=== PATIENT | female | born 1955 | race Caucasian/White ===

== ENCOUNTER → 2019-04-10 08:38 | Outpatient (BNVA) | payer MEDICARE, SELFPAY | PROVIDERS: PCP Family Medicine; Referring Provider Internal Medicine; Visit Provider Student in an Organized Health Care Education/Training Program | DX: S46.011A Strain of muscle(s) and tendon(s) of the rotator cuff of right shoulder, initial encounter (principal); W19.XXXA Unspecified fall, initial encounter; M75.01 Adhesive capsulitis of right shoulder; M75.51 Bursitis of right shoulder; M75.21 Bicipital tendinitis, right shoulder; G25.89 Other specified extrapyramidal and movement disorders | CPT/HCPCS: 99204; 99215 ==

== ENCOUNTER → 2019-05-29 12:46 | Outpatient (BNVA) | payer MEDICARE, SELFPAY | PROVIDERS: PCP Family Medicine; Referring Provider Family Medicine; Visit Provider Student in an Organized Health Care Education/Training Program | DX: M75.01 Adhesive capsulitis of right shoulder (principal); S46.011D Strain of muscle(s) and tendon(s) of the rotator cuff of right shoulder, subsequent encounter; X58.XXXD Exposure to other specified factors, subsequent encounter; M75.21 Bicipital tendinitis, right shoulder; G25.89 Other specified extrapyramidal and movement disorders | CPT/HCPCS: 99213 ==

== ENCOUNTER → 2019-09-18 13:17 | Outpatient (BNVA) | payer MEDICARE, SELFPAY | PROVIDERS: PCP Family Medicine; Referring Provider Family Medicine; Visit Provider Student in an Organized Health Care Education/Training Program | DX: M75.01 Adhesive capsulitis of right shoulder (principal); M75.51 Bursitis of right shoulder; S46.011D Strain of muscle(s) and tendon(s) of the rotator cuff of right shoulder, subsequent encounter; X58.XXXD Exposure to other specified factors, subsequent encounter; M75.21 Bicipital tendinitis, right shoulder; G25.89 Other specified extrapyramidal and movement disorders | CPT/HCPCS: 99213 ==

== ENCOUNTER 2020-12-17 13:04 | Outpatient (REF) | payer MEDICARE, SELFPAY ==
--- NOTE | 2020-12-17 10:15 | PAPFT_PTH ---
PATIENT: Melissa Chavarria LOC: [facility] U#:[id number] AGE/SX: 65/F ROOM: RE12/17/[address]: Laura Bryan : 1955 BED: DIS: 12/17/2020 SPEC #: [id number] RECD: 12/17/20 13:08 STATUS: SAEED RECandi #: [id number] MIMI: 12/17/20 10:[address]: Laura Bryan DEPT: [facility] Cytology RECD BY: Carly Granado Tissues: 1 - CX/ENDOCX FOR PAP SMEARS Procedures: PAP THIN PREP/UVM Screening Comments: [id number] (UNSATISFACTORY FOR EVALUATION)
== END 2020-12-17 13:05 | disposition home or self-care (01) ==
LOC: NCHCN 13:04
PROVIDERS: PCP Family Medicine; Visit Provider Family Medicine
DX: Z12.4 Encounter for screening for malignant neoplasm of cervix (principal); R87.615 Unsatisfactory cytologic smear of cervix
CPT/HCPCS: 88142

== ENCOUNTER 2021-02-19 12:17 | Outpatient (REF) | payer MEDICARE, SELFPAY ==
--- NOTE | 2021-02-19 11:30 | PAPFT_PTH ---
PATIENT: Melissa Chavarria LOC: [facility]#:[id number] AGE/SX: 65/F ROOM: RE02/19/[address]: Laura Bryan : 1955 BED: DIS: 02/19/2021 SPEC #: [id number] RECD: 02/20/21 12:39 STATUS: SAEED REQ #: [id number] MIMI: 02/19/21 11:[address]: Laura Bryan DEPT: [facility] Cytology RECD BY: Marla Woodall Tissues: 1 - CX/ENDOCX FOR PAP SMEARS Procedures: PAP THIN PREP/UVM Screening HPV DNA PROBE Comments: [id number]
== END 2021-02-19 12:18 | disposition home or self-care (01) ==
LOC: NCHCN 12:17
PROVIDERS: PCP Family Medicine; Visit Provider Family Medicine
DX: Z12.4 Encounter for screening for malignant neoplasm of cervix (principal); Z01.419 Encounter for gynecological examination (general) (routine) without abnormal findings; Z11.51 Encounter for screening for human papillomavirus (HPV)
CPT/HCPCS: 88142; 87624

== ENCOUNTER 2021-12-11 17:17 | Outpatient (REF) | payer MEDICARE, SELFPAY ==
[2021-12-11 15:24] LABS: HCT 41.2 % (36.0-46.0); MCH 31.3 pg (27.0-33.0); MCV 92 fL (80-95); MPV 11.3 fL (8.0-11.0); Platelet Count 178 10^3/uL (130-400); RBC 4.47 10^6/uL (3.93-5.22); RDW 12.3 % (11.7-14.6); RDW-SD 41.7 fL; WBC 5.45 10^3/uL (4.4-10.8)
[2021-12-11 15:48] LABS: ALT 29 U/L (14-59); AST 19 U/L (15-37); Albumin 3.6 g/dL (3.4-5.0); Alkaline Phosphatase 80 U/L (46-116); Anion Gap 7.1 mmol/L (3-11); BUN 20 mg/dL (7-18); Bilirubin, Total 0.3 mg/dL (0.2-1.0); CO2 26.9 mmol/L (21.0-32.0); CREATININE 0.8 mg/dL (0.55-1.02); Calcium 9.1 mg/dL (8.5-10.1); Chloride 107 mmol/L (98-107); Glucose 102 mg/dL (74-106); Potassium 3.9 mmol/L (3.5-5.1); Sodium 141 mmol/L (136-145); Total Protein 7.5 g/dL (6.4-8.2)
[2021-12-11 16:15] LABS: Calculated LDL 100 mg/dL (<100); Cholesterol 183 mg/dL (<200); HDL Cholesterol 50 mg/dL (40-60); Triglyceride 167 mg/dL (<150)
== END 2021-12-11 17:18 | disposition home or self-care (01) ==
LOC: NCHCN 17:17
PROVIDERS: PCP Family Medicine; Visit Provider Family Medicine
DX: E78.00 Pure hypercholesterolemia, unspecified (principal)
CPT/HCPCS: 80053; 80061; 85027

== ENCOUNTER → 2021-12-21 11:13 | Outpatient (BNVA) | payer MEDICARE, MEDICAID, SELFPAY | PROVIDERS: PCP Family Medicine; Referring Provider Family Medicine; Visit Provider Surgery | DX: R13.10 Dysphagia, unspecified (principal) | CPT/HCPCS: 99213 ==

== ENCOUNTER 2022-01-28 17:10 | Outpatient (REF) | payer MEDICARE, SELFPAY | END 2022-01-28 17:11 | disposition home or self-care (01) | LOC: NCHCN 17:10 | PROVIDERS: PCP Family Medicine; Visit Provider Family Medicine | DX: R32 Unspecified urinary incontinence (principal) | CPT/HCPCS: 87086 ==

== ENCOUNTER 2022-02-18 12:04 | Day surgery (SDC) | payer MEDICARE, MEDICAID, SELFPAY ==
--- NOTE | 2022-02-18 10:26 | W.PM.HP.N ---
Date of service: 02/18/22 Time of Service: 12:42 Assessment and Plan Assessment and plan (1) Dysphagia: Status: Acute Assessment and plan: EGD today History of Present Illness History of Present Illness Chief Complaint: dysphagia Narrative: Melissa is a 66-year-old woman with several weeks of dysphagia, that she describes as a sticking sensation around the lower portion of her neck, and upper portion of the esophagus. She is here for diagnostic EGD PFSH All Active Problems Jones's esophagus (Acute) Dysphagia (Acute) Tubulovillous adenoma of colon (Acute) GERD (gastroesophageal reflux disease) (Chronic) Petit mal status (Acute) Medical History Abnormal mammogram of left breast Adhesive capsulitis of right shoulder (~08/2018) Bursitis of right shoulder (~08/2018) Degenerative joint disease of spine Face lesion Family history of thyroid disease Grief reaction Hypercholesterolemia Neck pain petit mal seizures Pt. states she blanking out for 1 minute, its like a phase out, nobody is really aware of it but me, i know its happening, and its more stress induced Last time it happened 02/17/22. [place] [facility] [place] appointment on 04/2022 f or EEG. Rotator cuff tear, right (~08/2018) Scapular dyskinesis (~08/2018) Tendonitis of long head of biceps brachii of right shoulder (~08/2018) Surgical History Cholecystectomy Endometrial Ablation Endoscopy Tonsillectomy Tubal Ligation, Laparoscopic Family History Mother Diabetes Personal history of malignant neoplasm breast Ruptured cerebral aneurysm Father Diabetes Heart disease uncle Personal history of malignant neoplasm colon Other Polyp of colon Social History Smoking/Tobacco Use Status: Never Smoking risk assessment performed?: Yes Alcohol Intake: never Drug use: Never Substance use type: does not use Household members: spouse Do you feel safe at home: Yes Do you feel safe in your relationship?: Yes Meds Allergies and Home Medications Allergies Allergy/AdvReac Type Severity Reaction Status Date / Time No Known Allergies Allergy Verified 02/17/22 11:01 Home Medications Medication Instructions Recorded Confirmed Type divalproex 250 mg tablet,extended 250 mg PO BID 10/02/12 02/18/22 History release 24 hr (Depakote ER) ibuprofen 200 mg capsule 400 mg PO TID PRN 10/02/12 02/17/22 History multivitamin 1 ea PO DAILY 10/02/12 02/18/22 History topiramate 100 mg tablet (Topamax) 150 mg PO BID 10/02/12 02/18/22 History vitamin B complex 1 ea PO DAILY 10/02/12 02/18/22 History atorvastatin 20 mg tablet 20 mg PO QHS 04/09/19 02/18/22 History omeprazole 20 mg capsule,delayed 20 mg PO DAILY 04/09/19 02/18/22 History release fluoxetine 20 mg capsule 20 mg PO DAILY 12/17/21 12/21/21 History naproxen 500 mg tablet,delayed 500 mg PO BID 12/17/21 02/18/22 History release (EC-Naproxen) Exam Const General: cooperative, healthy appearing and comfortable Orientation: awake and oriented x3 Eyes General: appearance normal, both eyes and all related structures Conjunctivae: conjunctivae normal Sclera: sclerae normal Resp Effort & Inspection: normal respiratory effort and able to speak in complete sentences Auscultation: clear to auscultation bilaterally Cardio Jugular venous pressure: no JVD Rate: regular rate Rhythm: regular rhythm Heart Sounds: S1 normal and S2 normal GI Inspection: non-distended Palpation: soft, no guarding, no hernias and nontender Auscultation: normal bowel sounds Skin General skin exam: normal turgor Neuro General: patient alert, patient awake and patient oriented x3 Cognition: normal cognition Extrem Right lower extremity: no edema Left lower extremity: no edema
--- NOTE | 2022-02-18 10:48 | W.PM.DSUDISC ---
Discharge Plan Disposition Patient Disposition: HOME Condition: Good Discharge Details Reason For Visit: EGD Attending Provider: Kev Morocho Primary Care Provider: Laura Bryan Home Meds and New Rx's Prescriptions: Continued omeprazole 20 mg capsule,delayed release(DR/EC) 20 mg PO DAILY atorvastatin 20 mg tablet 20 mg PO QHS multivitamin 1 EACH tablet 1 ea PO DAILY ibuprofen 200 MG capsule 400 mg PO TID PRN topiramate [Topamax] 100 MG tablet 150 mg PO BID vitamin B complex 1 EACH capsule 1 ea PO DAILY divalproex [Depakote ER] 250 MG tablet extended release 24 hr 250 mg PO BID fluoxetine 20 mg capsule 20 mg PO DAILY naproxen [EC-Naproxen] 500 mg tablet,delayed release (DR/EC) 500 mg PO BID Discharge Instructions Instructions: Upper Endoscopy (DC) Additional Instructions: 1. If tolerated, consume a soft, low fiber diet for 1-2 days. [address] Do not drive, drink alcohol, operate machinery, make critical decisions, or do activities that require coordination or balance for 24 hours. 3. You may experience a sore throat for 24 to 48 hours. You may use throat lozenges or gargle with warm salt water to relieve the discomfort. 4. Because air was put into your stomach during the procedure, you may experience some belching. 5. Go directly to the emergency room if you notice any of the following: Develop chills (warm to touch), or if you have a thermometer and your temperature is above 101 Difficulty breathing or difficultly swallowing Persistent vomiting Severe abdominal pain, other than gas cramps Severe chest pain Black, tarry stools Any bleeding ? exceeding one tablespoon 6. Call your physician if the site where your intravenous was started becomes red, swollen, painful, and warm to touch. 7. Your physician has reviewed your pre-procedure medications. Please continue to take those medications as previously ordered. You will be given specific information/education regarding any changes to your medications before leaving. Activity:: Activity as Tolerated Diet:: As Tolerated Discharge Orders Discharge Orders: Discharge Order (Routine); Ordered 02/18/22 Ordered By: Kev Morocho DS: Diagnosis Discharge Diagnosis (1) Dysphagia: Status: Acute Asessment and Plan: My offic will contact you with biospy results
--- NOTE | 2022-02-18 10:49 | ENDO_ITS ---
Date of service: 02/18/22 Time of Service: 13:54 Endoscopy Report DATE OF PROCEDURE: 02/18/22 PRE-OP DIAGNOSIS: dysphagia POST-OP DIAGNOSIS: same PROCEDURE: EGD SURGEON: Kev Morocho ANESTHESIA TYPE: General:No Airway ESTIMATED BLOOD LOSS: 10 PATHOLOGY: other (biopsies gastric antrum and body) COMPLICATIONS: None DISPOSITION: same day INDICATIONS: dysphagia PROCEDURE START TIME: 13:33 PROCEDURE END TIME: 13:40 FINDINGS: Normal-appearing esophagus, stomach, duodenum PROCEDURE DESCRIPTION: After the initiation of monitored anesthetic care, and with the assistance of a bite block, I advanced a standard gastroscope through the mouth past the hypopharynx and into the esophagus.? Under the direct vision of the scope, I advanced down the esophagus into the stomach.? Once I entered the stomach, I performed a brief inspection, followed by retroflexion towards the gastric ca rdia.? This appeared normal.? After that, I gently advanced the scope around the incisura angularis and examined the pylorus.? This also appeared normal.? Next, I advanced the scope through the pylorus into the duodenum.? The mucosa was pink and healthy appearing.? There were no abnormalities.? I was able to visualize bile draining into the duodenum through the ampulla Vater. ?Next, I began retrac ting the endoscope.? I performed random biopsies of the gastric antrum and body. I then gently desufflated some of the stomach, and withdrew the endoscope into the distal esophagus. The Z-line was normal-appearing at the GE junction at 35 cm. ?Finally, I withdrew the scope along the length of the esophagus taking great care to examine the entirety of the mucosa.? I did not appreciate any abnormalities.
[2022-02-18 12:25] VITALS: BP 124/69; PULSE 72; RESP 18; TEMP 36.7; O2SAT 99
--- NOTE | 2022-02-18 12:33 | ANES.PREOP_ITS ---
General Info Date of Service Date Performed: 02/18/22 Height: 5 ft 4 in Weight: 78.3 kg Body Mass Index (BMI): 29.6 Surgical Procedure: Operation Date: 02/18/22 14:05 Proposed Procedure Side Surgeon p Gastroscopy Kev Morocho MD Meds Allergies and Home Medications Allergies Allergy/AdvReac Type Severity Reaction Status Date / Time No Known Allergies Allergy Verified 02/17/22 11:01 Home Medication Medication Instructions Recorded divalproex 250 mg tablet,extended 250 mg PO BID 10/02/12 release 24 hr (Depakote ER) ibuprofen 200 mg capsule 400 mg PO TID PRN 10/02/12 multivitamin 1 ea PO DAILY 10/02/12 topiramate 100 mg tablet (Topamax) 150 mg PO BID 10/02/12 vitamin B complex 1 ea PO DAILY 10/02/12 atorvastatin 20 mg tablet 20 mg PO QHS 04/09/19 omeprazole 20 mg capsule,delayed 20 mg PO DAILY 04/09/19 release fluoxetine 20 mg capsule 20 mg PO DAILY 12/17/21 naproxen 500 mg tablet,delayed 500 mg PO BID 12/17/21 release (EC-Naproxen) Current Visit Medications: Current Medications Generic Name Dose Route Start Last Admin Trade Name Freq PRN Reason Stop Dose Admin Hyoscyamine Sulfate 0.125 mg 02/18/22 10:49 Hyoscyamine 0.125 Mg Sl/Oral/Chew SL DIRECTED PRN Ringer's Solution 1,000 mls @ 80 mls/hr 02/18/22 06:00 IV 03/19/22 23:59 INFUSION [facility] IV Miscellaneous Supplies 1 each 02/18/22 06:00 Iv Access IV 03/19/22 23:59 DIRECTED [facility] Ondansetron HCl 4 mg 02/18/22 10:49 Ondansetron 4 Mg/2 Ml Vial IVP Q4H PRN PRN Nausea / Vomiting Sodium Chloride 0 ml 02/18/22 06:00 Normal Saline Flush 10 Ml Syr IV 03/19/22 23:59 PRN PRN Sodium Chloride 0 ml 02/18/22 06:00 Normal Saline 10 Ml Vial IJ 03/19/22 23:59 DIRECTED PRN Sterile Water 0 ml 02/18/22 06:00 Water,Injection,Sterile 10 Ml Vial IJ 03/19/22 23:59 DIRECTED PRN PFSH Active Problems Active Problems: Problem Status Onset Code Jones's esophagus Dysphagia R13.10 Tubulovillous adenoma of colon D12.6 GERD (gastroesophageal reflux disease) K21.9 Petit mal status G40.A01 Medical History Medical History Abnormal mammogram of left breast Adhesive capsulitis of right shoulder (~08/2018) Bursitis of right shoulder (~08/2018) Degenerative joint disease of spine Face lesion Family history of thyroid disease Grief reaction Hypercholesterolemia Neck pain petit mal seizures Pt. states she blanking out for 1 minute, its like a phase out, nobody is really aware of it but me, i know its happening, and its more stress induced Last time it happened 02/17/22. [place] [facility] [place] 04/2022 f or EEG. Rotator cuff tear, right (~08/2018) Scapular dyskinesis (~08/2018) Tendonitis of long head of biceps brachii of right shoulder (~08/2018) Surgical History Surgical History Cholecystectomy Endometrial Ablation Endoscopy Tonsillectomy Tubal Ligation, Laparoscopic Tobacco Smoking/Tobacco Use Status: Never Alcohol Alcohol Intake: never Substance Use Substance use: Never Substance use type: does not use Vital Signs and Lab Results Vital Signs Most Recent Vital Signs in EMR: Most Recent Vital Signs Temp Pulse Resp BP Pulse Ox 36.7 C 72 18 124/69 99 02/18/22 12:25 02/18/22 12:25 02/18/22 12:25 02/18/22 12:25 02/18/22 12:25 Lab Results Blood Type / Crossmatch: No Data to Display Complete Blood Count: No Data to Display Complete Metabolic Panel: No Data to Display Liver Function Panel: No Data to Display Coagulation Panel: No Data to Display Cardiac Panel: No Data to Display Arterial Blood Gas: No Data to Display Venous Blood Gas: No Data to Display Pancreas Panel: No Data to Display Thyroid Panel: No Data to Display Infectious Disease: No Data to Display Blood Cultures: No Data to Display Toxicology Panel: No Data to Display Anesthesia Assessment and Plan Anesthesia History Personal History: No History of Anesthesia Complications Family History: No Family History of Anesthesia Complications Exercise Tolerance Exercise Tolerance: Metabolic Equivalents>4 Pertinent Negatives Pertinent Negatives: No Major Cardiovascular Symptoms or Complaints, No Major Pulmonary Symptoms or Complaints, No History of CVA/TIA and Other (Dysphagia) Cardiac & Pulmonary Exam Cardiac Exam: Normal S1/S2 Heart Sounds Pulmonary Exam: Clear Bilateral Breath Sounds Implantable Cardiac Device Does patient have a Pacemaker or an ICD?: No Airway Exam Known Difficult Airway: No Mallampati Class: 1 Mouth Opening: Normal (> 3cm) Thyromental Distance: Greater than 3 cm Neck Range of Motion: Full ROM Neck Circumference: Normal Teeth Condition: Normal Dentition ASA Classification ASA Score: ASA 2 Emergency Case?: No NPO Status NPO Status: NPO Clears >2 hours, Solids >8 hours Anesthesia Plan Resuscitation Status: Full Code Anesthesia Technique: General Anesthesia Airway Planned: Natural Airway Monitors Used: Standard Monitors
[2022-02-18] MEDS: Lactated Ringers 1,000 ML 80 ML IV (12:37)
[2022-02-18 12:43] VITALS: BMI 29.6
--- NOTE | 2022-02-18 13:38 | STOM_PTH ---
PATIENT: Melissa Chavarria LOC: [facility] U#:[id number] AGE/SX: 66/F ROOM: RE02/18/[address]: Kev Morocho MD : 1955 BED: DIS: 02/18/2022 SPEC #: [id number] RECD: 02/18/22 17:31 STATUS: SAEED RE #: [id number] MIMI: 02/18/22 13:[address]: Kev Morocho DEPT: Surgical Specimen RECD BY: Carly Granado ENTERED: 02/18/22 17:32 SP TYPE: STOMACH OTHR DR: Laura Bryan Tissues: 1 - STOMACH BIOPSY 2 - STOMACH BIOPSY Procedures: GROSS AND MICRO LEVEL 4 Comments: [id number]
[2022-02-18 13:50] VITALS: BP 119/64; PULSE 68; RESP 14; TEMP 36.4; O2SAT 93
--- NOTE | 2022-02-18 14:08 | W.ANESPOSTOP ---
Postoperative Evaluation Date, Time and Location Date Performed: 02/18/22 Time Performed: 14:08 Patient Location: Day Surgery Unit Vital Signs Most Recent Imported Vital Signs: Most Recent Vital Signs Temp Pulse Resp BP Pulse Ox 36.4 C L 68 14 119/64 93 02/18/22 13:50 02/18/22 13:50 02/18/22 13:50 02/18/22 13:50 02/18/22 13:50 Pain Score Most Recent Pain Score: Most Recent Pain Score Pain Level 0 02/18/22 13:50 Assessment Mental Status: Awake (Alert & Oriented to Patient Baseline) Airway and Respiratory Function: Patent airway with normal (patient baseline) respiratory exam Cardiovascular Function: Hemodynamically Stable Hydration Status: Adequately Hydrated Nausea & Vomiting: No Nausea or Vomiting Pain: Pt. Denies Any Pain Peripheral Nerve Block: Patient did not receive a nerve block
[2022-02-18 14:15] VITALS: BP 130/82; PULSE 60; RESP 16; TEMP 36.4; O2SAT 94
== END 2022-02-18 14:52 | disposition home or self-care (01) ==
PROVIDERS: PCP Family Medicine; Visit Provider Surgery
PROC: 0DJ68ZZ Inspection of Stomach, Via Natural or Artificial Opening Endoscopic (ICD-10-PCS; CPT 43235; principal; 2022-02-18 14:00)
DX: R13.10 Dysphagia, unspecified (principal); Z87.19 Personal history of other diseases of the digestive system; E78.00 Pure hypercholesterolemia, unspecified; G40.802 Other epilepsy, not intractable, without status epilepticus; K31.89 Other diseases of stomach and duodenum
CPT/HCPCS: 43239; 88305; J2405

== ENCOUNTER 2022-06-21 15:42 | Outpatient (REF) | payer MEDICARE, MEDICAID, SELFPAY ==
[2022-06-21 21:27] LABS: Bilirubin Negative (Negative); Blood Trace-intact (Negative); Clarity Clear (Clear); Glucose Negative (Negative); Ketones Negative (Negative); Leukocyte Esterase Moderate (Negative); Nitrite Negative (Negative); Specific Gravity 1.015 (1.005-1.025); Urobilinogen 0.2 EU/dL (Up TO 0.2)
[2022-06-21 21:36] LABS: Bacteria Rare HPF (Negative); C & S Indicated? No; Casts Negative LPF (Negative); Crystals Negative HPF (Negative); Epithelial Cells Many HPF (Negative); Mucus Negative (Negative); Other Cells Negative (Negative)
== END 2022-06-21 15:43 | disposition home or self-care (01) ==
LOC: NCHCN 15:42
PROVIDERS: PCP Family Medicine; Visit Provider Family Medicine
DX: R35.0 Frequency of micturition (principal); R82.998 Other abnormal findings in urine
CPT/HCPCS: 81003; 81015

== ENCOUNTER 2022-12-27 11:59 | Outpatient (REF) | payer MEDICARE, MEDICAID, SELFPAY ==
[2022-12-27 15:13] LABS: HCT 40.3 % (36.0-46.0); HGB 13.7 g/dL (11.2-15.7); MCH 31.1 pg (27.0-33.0); MCV 91 fL (80-95); MPV 11.3 fL (8.0-11.0); Platelet Count 189 10^3/uL (130-400); RBC 4.41 10^6/uL (3.93-5.22); RDW 12.1 % (11.7-14.6); RDW-SD 40.6 fL; WBC 5.19 10^3/uL (4.4-10.8)
[2022-12-27 16:32] LABS: Vitamin D 25 Total 24.1 ng/mL (30-100)
[2022-12-27 17:09] LABS: ALT 35 U/L (14-59); AST 26 U/L (15-37); Albumin 3.4 g/dL (3.4-5.0); Alkaline Phosphatase 96 U/L (46-116); Anion Gap 11.4 mmol/L (3-11); BUN 20 mg/dL (7-18); Bilirubin, Total 0.5 mg/dL (0.2-1.0); CO2 25.6 mmol/L (21.0-32.0); CREATININE 0.9 mg/dL (0.55-1.02); Calcium 8.9 mg/dL (8.5-10.1); Calculated LDL 134 mg/dL (<100); Chloride 104 mmol/L (98-107); Cholesterol 218 mg/dL (<200); Estimated GFR 70.51 (mL/min/1.73m2); Glucose 110 mg/dL (74-106); HDL Cholesterol 51 mg/dL (40-60); Potassium 4.1 mmol/L (3.5-5.1); Sodium 141 mmol/L (136-145); Total Protein 6.9 g/dL (6.4-8.2); Triglyceride 165 mg/dL (<150)
== END 2022-12-27 12:00 | disposition home or self-care (01) ==
LOC: NCHCN 11:59
PROVIDERS: PCP Family Medicine; Visit Provider Family Medicine
DX: E78.00 Pure hypercholesterolemia, unspecified (principal); R42 Dizziness and giddiness; E55.9 Vitamin D deficiency, unspecified; R79.89 Other specified abnormal findings of blood chemistry
CPT/HCPCS: 80053; 80061; 82306; 85027

== ENCOUNTER 2024-01-30 01:48 | Outpatient (CLI) | payer MEDICARE, SELFPAY ==
--- NOTE | 2024-01-30 | DI.NM_ITS ---
APPROVED REPORT Exam: Exercise Treadmill Patient Location: Out-Patient Room/Bed: Stress Nurse: rBenna Velazquez RN; Meenakshi Masterson RN Ordering Provider:CHEPE VAZQUEZ, Contact Number: [phone] BMI: 33.29 Baseline Rhythm: Sinus Rhythm Indications: chest pain Medical History Medical History: GERD, Barrets esophagus, hypercholesterolemia, absence epileptic syndrome, obesity, depression (major) adjustment disorder Cardiac Medications: atorvastatin, depakote, fluoxetine, omeprazole, tizanidine Allergies: NKA Cardiac Risk Factors: family hx, HLD Previous Cardiac Procedures: none Pretest Chest Pain Characteristics: none Exercise History: Physically active Physical Disabilities: none Lung Sounds: Clear to auscultation Heart Sounds: Regular Stress Test Details Test: Exercise stress testing was performed using a David protocol. Nuclear Acquisition: Rest Tc-99m/Stress Tc-99m 1 day Rest Isotope: Tc-99m Sestamibi. Dose: 10.0 Date: 01/30/2024 Injection Time: 0910 Stress Isotope: Tc-99m Sestamibi. Dose: 30.0 Date: 01/30/2024 Injection Time: 1115 HR Resting HR Supine: 67 bpm Max Heart Rate (APMHR): 153.278167 bpm Resting HR Standin bpm Target HR (85% APMHR): 130.666478 bpm Max HR Achieved: 138 bpm % of APMHR: 90.20 Recovery HR: 83 bpm HR response to stress: Normal HR response to stress BP Resting BP Supine: 184/100 mmHg Resting BP Standin/98 mmHg Max BP: 228/78 mmHg Recovery BP: 168/98 mmHg BP response to stress: Abnormal hypertensive response to stress. ECG Resting ECG: Sinus Rhythm Ectopy: none Stress ECG: Sinus Tachycardia ST Change: No significant ST segment changes noted Arrhythmia: occasional PACs Recovery ECG: Sinus Rhythm Recovery ST Change: No significant ST segment changes noted Recovery Arrhythmia: rare PVC Clinical Reason for Termination: Target HR Achieved Stress Symptoms: General Fatigue Exercise duration: 7 min00 sec Highest Stage Reached: Stage 3: 3.4 mph at 14% grade. Exercise capacity: 8.57 METs Angina Score: None Thibodeaux Treadmill Score: 6.3 Rate Pressure Product: 03523 Stress ECG Conclusion 1. Resting electrocardiogram showed minor ST abnormalities 2. Patient exercised on the David protocol and completed workload of 9 METS 3. Hypertensive blood pressure response to exercise. Normal heart rate response to exercise. Olu turner achieved 90% of maximal predicted heart rate for age 4. There was no electrocardiographic evidence of myocardial ischemia 5. There were no significant dysrhythmias 6. See MPI report Thibodeaux Treadmill Score is 6.3 which is Low risk. Stress Test Summary STAGE Time (mins) Speed (mph) Grade (%) HR BP SpO2 SYMPTOMS METS Supine 67 184/100 98 Standing 69 182/98 1 3 1.7 10 120 190/80 97 4.5 2 6 2.5 12 133 198/84 7 1 min recovery 117 228/78 3 min recovery 82 208/98 6 min recovery 83 168/98 98 MPI Conclusion Myocardial perfusion is normal. There is no ischemia or evidence of prior infarction Ejection fraction is 60% with normal wall motion Radiologist Interpretation Radiologist Interpretation by: Juan Morocho MD Interpretation Date/Time: 01/30/2024 15:58:16
[2024-01-30 11:26] LABS: ALT 18 U/L (14-59); AST 17 U/L (15-37); Albumin 3.3 g/dL (3.4-5.0); Alkaline Phosphatase 97 U/L (46-116); Anion Gap 9.1 mmol/L (3-11); BUN 23 mg/dL (7-18); Bilirubin, Total 0.29 mg/dL (0.2-1.0); CO2 27.9 mmol/L (21.0-32.0); CREATININE 0.8 mg/dL (0.55-1.02); Calcium 8.6 mg/dL (8.5-10.1); Calculated LDL 102 mg/dL (<100); Chloride 105 mmol/L (98-107); Cholesterol 187 mg/dL (<200); Estimated GFR 80.71 (mL/min/1.73m2); Glucose 97 mg/dL (74-106); HDL Cholesterol 48 mg/dL (40-60); Potassium 4.5 mmol/L (3.5-5.1); Sodium 142 mmol/L (136-145); Total Protein 6.9 g/dL (6.4-8.2); Triglyceride 185 mg/dL (<150); Vitamin D 25 Total 32.4 ng/mL (30-100)
== END 2024-01-30 02:08 ==
PROVIDERS: PCP Family Medicine; Visit Provider Family Medicine
DX: R07.9 Chest pain, unspecified (principal); E78.00 Pure hypercholesterolemia, unspecified; E55.9 Vitamin D deficiency, unspecified
CPT/HCPCS: 36415; 78452; 80053; 80061; 82306; 93016; 93018; 93017

== ENCOUNTER 2024-03-26 16:37 | Outpatient (REF) | payer MEDICARE, SELFPAY ==
--- NOTE | 2024-03-26 12:15 | SKI_PTH ---
PATIENT: Melissa Chavarria LOC: [facility] #:[id number] AGE/SX: 68/F ROOM: RE03/26/[address]: Laura Bryan : 1955 BED: DIS: 03/26/2024 SPEC #: [id number] RECD: 03/26/24 16:53 STATUS: SAEED REQ #: [id number] MIMI: 03/26/24 12:[address]: Laura Bryan DEPT: Surgical Specimen RECD BY: Carly Granado Tissues: 1 - SKIN BIOPSY(SHAVE/PUNCH) Procedures: SKIN LEVEL 4 Comments: [id number]
== END 2024-03-26 16:38 | disposition home or self-care (01) ==
LOC: NCHCN 16:37
PROVIDERS: PCP Family Medicine; Visit Provider Family Medicine
DX: Q85.09 Other neurofibromatosis (principal)
CPT/HCPCS: 88305

== ENCOUNTER 2024-06-04 15:04 | Outpatient (REF) | payer MEDICARE, SELFPAY | END 2024-06-04 15:05 | disposition home or self-care (01) | LOC: NCHCN 15:04 | PROVIDERS: PCP Family Medicine; Visit Provider Family Medicine | DX: N39.0 Urinary tract infection, site not specified (principal); R82.89 Other abnormal findings on cytological and histological examination of urine | CPT/HCPCS: 87086 ==